=== PATIENT | female | born 1980 | race Caucasian/White ===

== ENCOUNTER 2024-07-03 15:03 | Emergency (ER) | payer OTHER ==
[2024-07-03 15:33] VITALS: BP 125/74; PULSE 73; RESP 20; TEMP 98.6; BMI 48.2
== END 2024-07-03 16:21 | disposition home or self-care (01) ==
LOC: FER 15:03
DX: R55 Syncope and collapse (principal)
CPT/HCPCS: 82962; 93005; 99284-25

== ENCOUNTER 2025-02-26 15:13 | Emergency (ER) | payer OTHER ==
[2025-02-26 15:24] VITALS: BMI 47.2
[2025-02-26 17:21] LABS: ABSOLUTE IMMATURE GRANULOCYTES 0.07 x10^3/uL (0.0-0.031); BASOPHILS # 0.03 x10^3/uL (0.01-0.08); EOSINOPHIL % 0.1 % (0.7-5.8); EOSINOPHILS # 0.02 x10^3/uL (0.04-0.36); HEMATOCRIT 44.5 % (34.1-44.9); HEMOGLOBIN 15.1 g/dL (11.2-15.7); MCHC 33.9 g/dl (32.2-35.5); MEAN CELL VOLUME 95.3 fl (79.4-94.8); MEAN PLT VOLUME 8.5 fl (9.4-12.3); MONOCYTE # 0.56 x10^3/uL (0.24-0.86); MONOCYTE % 3.9 % (4.7-12.5); PLATELET COUNT 422 x10^3/uL (182-369); RDW 13.4 % (12.2-17.1)
[2025-02-26 17:41] LABS: EPI CELLS >36 /uL (0-25.1); HYALINE CASTS 1 /uL (0-3.1); URINE APPEARANCE CLEAR; URINE BILIRUBIN NEGATIVE (NEGATIVE); URINE COLOR YELLOW; URINE GLUCOSE (UA) TRACE (NEGATIVE); URINE KETONE TRACE (NEGATIVE); URINE LEUK ESTERASE TRACE (NEGATIVE); URINE NITRITE NEGATIVE (NEGATIVE); URINE PROTEIN TRACE (NEGATIVE); URINE RBC 11 /uL (0-23.9); URINE WBC 16 /uL (0-25.8)
[2025-02-26 17:44] LABS: CHLORIDE 104 mmol/L (98-107); SODIUM 127 mmol/L (136-145)
[2025-02-26 17:48] LABS: CALCIUM 9.1 mg/dL (8.5-10.1)
[2025-02-26 17:49] LABS: ALBUMIN 3.4 g/dl (3.4-5.0); BLOOD UREA NITROGEN 9.4 mg/dL (7-18); CO2 25 mmol/L (21-32); GLUCOSE,RANDOM 76 mg/dL (74-106)
[2025-02-26 17:52] LABS: CREATININE 0.9 mg/dL (0.55-1.3)
[2025-02-26 17:54] LABS: TOT PROT 9.2 g/dl (6.4-8.2)
[2025-02-26 17:55] LABS: ALK PHOS 69 U/L (45-117); ANION GAP -2 mmol/L (4-13); POTASSIUM > 10.0 mmol/L (3.5-5.1)
[2025-02-26 18:21] LABS: URINE BACTERIA 383.9 /uL (0-1359)
[2025-02-26 18:39] LABS: HCV DIAGNOSTIC IN-HOUSE W/RFLX NON-REACTIVE (NONREACTIVE); HIV INTERPRETATION NEGATIVE (NEGATIVE)
[2025-02-26 20:37] LABS: POTASSIUM 3.9 mmol/L (3.5-5.1)
[2025-02-26 20:39] LABS: BLOOD UREA NITROGEN 10.2 mg/dL (7-18); CALCIUM 9.4 mg/dL (8.5-10.1)
[2025-02-26 20:40] LABS: ALBUMIN 3.6 g/dl (3.4-5.0)
[2025-02-26 20:43] LABS: CREATININE 0.8 mg/dL (0.55-1.3)
[2025-02-26 20:45] LABS: TOT PROT 7.3 g/dl (6.4-8.2)
[2025-02-26 20:46] LABS: BILIRUBIN,TOTAL 0.4 mg/dL (0.2-1)
[2025-02-26] MEDS ORDERED: DOXYCYCLINE HYCLATE 100 MG TABLET PO ONE (22:34)
[2025-02-26] MEDS ORDERED: LIDOCAINE HCL 1%, 10 MG/ML (20ML VIAL) ONE (22:34)
[2025-02-26] MEDS: DOXYCYCLINE HYCLATE 100 MG CAPSULE PO ONE (22:52)
[2025-02-26 22:56] VITALS: BP 114/64; PULSE 80; RESP 19; TEMP 97.9
== END 2025-02-26 23:25 | disposition home or self-care (01) ==
LOC: JER 15:13
DX: N72 Inflammatory disease of cervix uteri (principal); R10.31 Right lower quadrant pain; R10.2 Pelvic and perineal pain
CPT/HCPCS: 36415; 74177-TC; 76830-TC; 80053; 81003; 84703; 85025; 86803; 87070; 87077; 87086; 87205; 87389; 87491; 87591; 87661; 99285-25; Q9967

== ENCOUNTER 2025-02-27 14:15 | Emergency (ER) | payer OTHER ==
[2025-02-27 14:24] VITALS: BMI 48.2
[2025-02-27] MEDS ORDERED: FAMOTIDINE 20 MG TABLET ONE (15:14)
[2025-02-27] MEDS ORDERED: methylPREDNISolone NA SUCC 125 MG/2 ML VIAL ONE (15:14)
[2025-02-27] MEDS ORDERED: LORATADINE 10 MG TABLET ONE (15:14)
[2025-02-27] MEDS: FAMOTIDINE 20 MG TABLET PO ONE (15:22)
[2025-02-27] MEDS: LORATADINE 10 MG TABLET PO ONE (15:22)
[2025-02-27] MEDS: methylPREDNISolone NA SUCC 125 MG/2 ML VIAL IM ONE (15:23)
[2025-02-27 16:15] LABS: ABSOLUTE IMMATURE GRANULOCYTES 0.04 x10^3/uL (0.0-0.031); BASOPHILS # 0.03 x10^3/uL (0.01-0.08); EOSINOPHIL % 0.6 % (0.7-5.8); EOSINOPHILS # 0.07 x10^3/uL (0.04-0.36); HEMOGLOBIN 14.6 g/dL (11.2-15.7); MEAN CELL VOLUME 94.5 fl (79.4-94.8); MEAN PLT VOLUME 8.4 fl (9.4-12.3); MONOCYTE # 0.61 x10^3/uL (0.24-0.86); PLATELET COUNT 411 x10^3/uL (182-369); RDW 11.9 % (12.2-17.1)
[2025-02-27 16:33] LABS: POTASSIUM 4.4 mmol/L (3.5-5.1)
[2025-02-27 16:35] LABS: BLOOD UREA NITROGEN 9.1 mg/dL (7-18); CALCIUM 9.4 mg/dL (8.5-10.1)
[2025-02-27 16:36] LABS: ALBUMIN 3.6 g/dl (3.4-5.0)
[2025-02-27 16:39] LABS: CREATININE 0.8 mg/dL (0.55-1.3)
[2025-02-27 16:40] LABS: BILIRUBIN,TOTAL 0.4 mg/dL (0.2-1); TOT PROT 7.4 g/dl (6.4-8.2)
[2025-02-27 16:53] VITALS: BP 112/70; PULSE 76; RESP 20; TEMP 98.3
[2025-02-27] MEDS ORDERED: CLINDAMYCIN HCL 150 MG CAPSULE (FP) ONE (19:27)
[2025-02-27] MEDS: CLINDAMYCIN HCL 150 MG CAPSULE (FP) PO ONE (19:29)
== END 2025-02-27 19:52 | disposition home or self-care (01) ==
LOC: JER 14:15
PROC: 3E0233Z Introduction of Anti-inflammatory into Muscle, Percutaneous Approach (ICD-10-PCS; principal; 2025-02-27)
DX: R22.1 Localized swelling, mass and lump, neck (principal); M54.2 Cervicalgia
CPT/HCPCS: 36415; 70490-TC; 80053; 82550; 82962; 84439; 84443; 84484; 85025; 93005; 93010; 99285-25